=== PATIENT | male | born 2000 | race African-American/Black ===

== ENCOUNTER → 2018-03-18 | Outpatient (REF) | payer OTHER | LOC: M LAB REF 17:23 | DX: R76.11 Nonspecific reaction to tuberculin skin test without active tuberculosis (principal) | CPT/HCPCS: 87116 ==

== ENCOUNTER → 2018-03-19 | Outpatient (REF) | payer OTHER | LOC: M LAB REF 17:21 | DX: R76.11 Nonspecific reaction to tuberculin skin test without active tuberculosis (principal) | CPT/HCPCS: 87116 ==

== ENCOUNTER → 2018-03-20 | Outpatient (REF) | payer OTHER | LOC: M LAB REF 17:18 | DX: R76.11 Nonspecific reaction to tuberculin skin test without active tuberculosis (principal) | CPT/HCPCS: 87116 ==

== ENCOUNTER → 2019-11-24 | Outpatient (REF) | LOC: M LAB 13:47 | PROVIDERS: ATTEND Nurse Practitioner Adult Health | DX: Z02.89 Encounter for other administrative examinations (principal) ==

== ENCOUNTER → 2020-01-06 | Outpatient (REF) | payer OTHER, SELFPAY ==
[2020-01-06 17:14] LABS: BASO % 0.8 % (0.0-1.0); EOS % 0.5 % (0.0-3.0); LYMPH # 1.6 10^3/uL (1.5-5.0); LYMPH % 42.8 % (24.0-44.0); MEAN CORPUSCULAR HEMOGLOBIN 30.7 pg (27.0-33.0); MEAN CORPUSCULAR HGB CONC 34.1 g/dl (32.0-36.5); MEAN CORPUSCULAR VOLUME 90.2 fl (80.0-96.0); MONO # 0.4 10^3/uL (0.0-0.8); MONO % 11.3 % (0.0-5.0); NEUTROPHILS # 1.7 10^3/uL (1.5-8.5); NEUTROPHILS % 44.3 % (36.0-66.0); PLATELET COUNT, AUTOMATED 253 10^3/uL (150-450); RED BLOOD COUNT 4.88 10^6/uL (4.30-6.10); WHITE BLOOD COUNT 3.8 10^3/uL (4.0-10.0)
[2020-01-06 17:34] LABS: ALBUMIN 4.3 GM/DL (3.2-5.2); ALT/SGPT 22 U/L (12-78); BILIRUBIN,TOTAL 0.6 MG/DL (0.2-1.0); BLOOD UREA NITROGEN 12 MG/DL (7-18); CALCIUM LEVEL 9.1 MG/DL (8.5-10.1); CARBON DIOXIDE LEVEL 30 MEQ/L (21-32); CHLORIDE LEVEL 105 MEQ/L (98-107); CREATININE FOR GFR 1.04 MG/DL (0.70-1.30); GLOMERULAR FILTRATION RATE > 60.0 (>60); GLUCOSE, FASTING 83 MG/DL (70-100); POTASSIUM SERUM 3.9 MEQ/L (3.5-5.1); SODIUM LEVEL 139 MEQ/L (136-145); TOTAL PROTEIN 7.5 GM/DL (6.4-8.2)
[2020-01-07 17:42] LABS: HIV 1&2 SCREEN CENTAUR NEGATIVE (NEGATIVE)
== END ==
LOC: M SFHCPLAZ 14:10
PROVIDERS: ATTEND Internal Medicine Infectious Disease
DX: Z22.7 Latent tuberculosis (principal)

== ENCOUNTER 2021-05-26 04:30 | Emergency (ER) | payer OTHER ==
[~2021-05-26] VITALS: Ht 170.2 cm; Wt 83.6 kg
--- OUTSIDE RECORDS SUMMARY | 2021-05-26 04:37 | CCD ---
Author Author [facility] Organization [facility] Address Unknown Phone Unavailable Care Team Providers Care Employee Benefits Insurance Agent Name Role Phone PICKERAL JR, J LETI PA-C Unavailable Unavailable PICKERAL JR, J LETI PA-C Unavailable Unavailable PICKERAL JR, J LETI PA-C Unavailable Unavailable PICKERAL JR, Diamond LETI PA-C Unavailable Unavailable PICKERAL JR, Diamond LETI PA-C Unavailable Unavailable PICKERAL JR, Diamond LETI PA-C Unavailable Unavailable PICKERAL JR, Diamond LETI PA-C Unavailable Unavailable PICKERAL JR, Diamond LETI PA-C Unavailable Unavailable PICKERAL JR, Diamond LETI PA-C Unavailable Unavailable PICKERAL JR, Diamond LETI PA-C Unavailable Unavailable PICKERAL JR, Diamond LETI PA-C Unavailable Unavailable PICKERAL JR, J LETI PA-C Unavailable Unavailable PICKERAL JR, Diamond LETI PA-C Unavailable Unavailable PICKERAL JR, J LETI PA-C Unavailable Unavailable PICKERAL JR, J LETI PA-C Unavailable Unavailable PICKERAL JR, J LETI PA-C Unavailable Unavailable PICKERAL JR, J LETI PA-C Unavailable Unavailable PICKERAL JR, J LETI PA-C Unavailable Unavailable PICKERAL JR, J LETI PA-C Unavailable Unavailable PICKERAL JR, J LETI PA-C Unavailable Unavailable PICKERAL JR, J LETI PA-C Unavailable Unavailable PICKERAL JR, J LETI PA-C Unavailable Unavailable PICKERAL JR, J LETI PA-C Unavailable Unavailable PICKERAL JR, J LETI PA-C Unavailable Unavailable PICKERAL JR, J LETI PA-C Unavailable Unavailable PICKERAL JR, J LETI PA-C Unavailable Unavailable PICKERAL JR, J LETI PA-C Unavailable Unavailable Re-disclosure Warning The records that you are about to access may contain information from federally-assisted alcohol or drug abuse programs. If such information is present, then the following federally mandated warning applies: This information has been disclosed to you from records protected by federal confidentiality rules (42 CFR part 2). The federal rules prohibit you from making any further disclosure of this information unless further disclosure is expressly permitted by the written consent of the person to whom it pertains or as otherwise permitted by 42 CFR part 2. A general authorization for the release of medical or other information is NOT sufficient for this purpose. The Federal rules restrict any use of the information to criminally investigate or prosecute any alcohol or drug abuse patient.The records that you are about to access may contain highly sensitive health information, the redisclosure of which is protected by Article 27-F of the [facility] Public Health law. If you continue you may have access to information: Regarding HIV / AIDS; Provided by facilities licensed or operated by the [facility] Office of Mental Health; or Provided by the [facility] Office for People With Developmental Disabilities. If such information is present, then the following [facility] mandated warning applies: This information has been disclosed to you from confidential records which are protected by state law. State law prohibits you from making any further disclosure of this information without the specific written consent of the person to whom it pertains, or as otherwise permitted by law. Any unauthorized further disclosure in violation of state law may result in a fine or penitentiary sentence or both. A general authorization for the release of medical or other information is NOT sufficient authorization for further disc losure. Encounters Encounter Providers Location Date Indications Data Source(s ) Outpatient Attender: LETI fuchs 02/11/2021 08:45:[address] [facility] ([facility], [facility]) Immunizations Vaccine Date Status Description Data Source(s) COVID-19 VACCINE Moderna 12/02/2020 12:00:00 AM EDT completed IDSIIS Vaccine Series Complete: NOThis Data was Submitted to [facility] Via [employer]. Medications No Information Insurance Providers Payer name Policy type / Coverage type Policy ID Covered republican ID Covered republican's relationship to hanson Policy Hanson Plan Information UMR [facility] [id number] SP [id number] SELF PAY ONLY SP OTHER1 MEDICAID M [id number] S [id number] [facility] PUB TH O [id number] S [id number] [facility] [id number] SP [id number] [facility] [id number] SP [id number] EMPLOYEE BENEFIT CLAIMS [id number] SP [id number] SELF PAY [facility] PUB [facility] O UNAVAILABLE [id number] S UNAVAILABLE O UNAVAILABLE UNAVAILA BLE Problems, Conditions, and Diagnoses No Information Surgeries/Procedures Procedure Description Date Indications Data Source(s) Remove Impact Cerumen Irrigati 02/11/20[facility] 12:00:[facility] OFFICE OUTPATIENT NEW 30 MINUTES 02/11/2021 12:00:[address] [facility] ([facility], [facility]) Results No Information Social History No Information Vital Signs ID Date Data Source UNK Name Value Range Interpretation Code Description Data Source(s) Systolic blood pressure 141 mm[Hg] 141 mm[Hg] [facility] Heart rate 65 /min 65 /min [facility] ([facility], [facility]) Diastolic blood pressure 80 mm[Hg] 80 mm[Hg] [facility] ([facility]) Respiratory rate 12 /min 12 /min [facility] ( [facility]) Oxygen saturation in Arterial blood by Pulse oximetry 98 % 98 % [facility] ([facility], [facility]) Body temperature 97.8 [degF] 97.8 [degF] [facility] ([facility]) Body weight 178.00 [lb_av] 178.00 [facility]_av] [facility] Body height 67 [in_i] 67 [in_i] [facility] ([facility]) 5'7" Body mass index (BMI) [Ratio] 27.9 kg/m2 27.9 k g/m2 [facility] ([facility])
--- OUTSIDE RECORDS SUMMARY | 2021-05-26 08:11 | CCD ---
Author Author [facility] Organization [facility] Address Unknown Phone Unavailable Care Team Providers Care Transfer Table Operator Name Role Phone PICKERAL JR, J LETI [...] is protected by Article 27-F of the [facility] Public Health law. If you continue you may have access to information: Regarding HIV / AIDS; Provided by facilities licensed or operated by the [facility] Office of Mental Health; or Provided by the [facility] Office for People With Developmental Disabilities. If such information is present, then the following [facility] mandated warning applies: This information has been [...] law may result in a fine or group home sentence or both. A general authorization for the release of medical or other information is NOT sufficient authorization for further disc losure. Encounters Encounter Providers Location Date Indications Data Source(s ) Outpatient Attender: LETI fuchs 02/11/2021 08:45:00 AM EDT [facility] ([facility], [facility]) Immunizations Vaccine Date Status Description Data Source(s) COVID-19 VACCINE Moderna 12/02/2020 12:00:00 AM EDT completed KYSIIS Vaccine Series Complete: NOThis Data was Submitted to [facility] Via [employer]. Medications No Information Insurance Providers Payer name Policy type / Coverage type Policy ID Covered green party ID Covered green party's relationship to ahnson Policy Hanson Plan Information UMR [facility] [id number] SP [id number] SELF PAY ONLY SP OTHER1 MEDICAID M [id number] S [id number] [facility] PUB TH O [id number] S [id number] [facility] [id number] SP [id number] [facility] [id number] SP [id number] EMPLOYEE BENEFIT CLAIMS [id number] SP [id number] SELF PAY [facility] PUB [facility] O UNAVAILABLE [id number] S UNAVAILABLE O UNAVAILABLE UNAVAILA BLE Problems, Conditions, and Diagnoses No Information Surgeries/Procedures Procedure Description Date Indications Data Source(s) Remove Impact Cerumen Irrigati 02/11/2021 12:00:00 AM [facility]) OFFICE OUTPATIENT NEW 30 MINUTES 02/11/2021 12:00:00 A M EDT [facility], [facility]) Results No Information Social History No Information Vital Signs ID Date Data Source UNK Name Value Range Interpretation Code Description Data Source(s) Systolic blood pressure 141 mm[Hg] 141 mm[Hg] [facility]) Diastolic blood pressure 80 mm[Hg] 80 mm[Hg] [facility] ([facility]) Heart rate 65 /min 65 /min [facility] ([facility], [facility]) Respiratory rate 12 /min 12 /min [facility] ( [facility]) Oxygen saturation in Arterial blood by Pulse oximetry 98 % 98 % [facility] ([facility], [facility]) Body temperature 97.8 [degF] 97.8 [degF] [facility] ([facility], [facility]) Body weight 178.00 [lb_av] 178.00 [lb_av] [facility] Body height 67 [in_i] 67 [in_i] [facility] ([facility] 5'7" Body mass index (BMI) [Ratio] 27.9 kg/m2 27.9 k g/m2 [facility] ([facility])
--- NOTE | 2021-05-26 09:12 | REP ---
INDICATION: trauma to throat. COMPARISON: None. TECHNIQUE: Axial soft tissue images with coronal and sagittal reconstructions provided. FINDINGS: The parotid and submandibular glands were unremarkable. Anterior and posterior chain cervical nodes were symmetric no abnormal thickening of the adenoid pad. The nasopharyngeal, mo pharyngeal and hypopharyngeal airway is were intact. Larynx and subglottic trachea unremarkable. No significant asymmetry of the tonsillar fossa or mass. Tongue base grossly intact. Strap muscles in the neck were unremarkable. No prevertebral swelling. The bone windows show the cervical spine with normal lordosis and no focal lesion craniocervical junction intact. Mandible, maxilla skull base bone windows are unremarkable mastoid symmetric and normal visualized sinuses clear. No supraclavicular mass or adenopathy. Thyroid lobes symmetric. The lung apices are clear. IMPRESSION: No CT evidence for significant pathology in the throat or neck soft tissues. The underlying skull base, facial and cervical spine bony structures grossly intact. Airway patent. Nothing acute by CT. <Electronically signed by Eb Barillas > 05/26/21 [id number]
[2021-05-26 09:40] VITALS: BP 132/82
== END 2021-05-26 09:41 | disposition home or self-care (01) ==
LOC: M ED 04:30
DX: R13.10 Dysphagia, unspecified (principal); M54.2 Cervicalgia; J02.9 Acute pharyngitis, unspecified; R22.1 Localized swelling, mass and lump, neck

== ENCOUNTER 2024-01-09 08:22 | Emergency (ER) | payer OTHER, SELFPAY ==
[~2024-01-09] VITALS: Ht 170.2 cm; Wt 69.4 kg
[2024-01-09] MEDS: FLUORESCEIN OPHTH 1MG STRIP OD ONE (08:48)
[2024-01-09] MEDS: PROPARACAINE 0.5% OPHTH SOL 15ML OD ONE (08:48)
[2024-01-09] MEDS ORDERED: OFLO5DRO OD (09:23)
[2024-01-09] MEDS: cefTRIAXone SOD 1GM VIAL IM ONE (09:32)
[2024-01-09] MEDS: LIDOCAINE 1% SDV 5ML VIAL DILUENT ONE (09:32)
[2024-01-09] MEDS: OFLOXACIN 0.3 % (OCUFLOX) OPTH SOL 5ML OD ONE (09:37)
[2024-01-09 09:52] VITALS: BP 122/77; TEMP 98.3; O2SAT 98
== END 2024-01-09 10:12 | disposition home or self-care (01) ==
LOC: M ED 08:22
DX: H10.31 Unspecified acute conjunctivitis, right eye (principal); F17.200 Nicotine dependence, unspecified, uncomplicated; Z79.2 Long term (current) use of antibiotics
CPT/HCPCS: 87070; 96372; 99283; J0696

== ENCOUNTER 2025-05-17 14:10 | Emergency (ER) | payer OTHER ==
[~2025-05-17 14:10] MED LIST: OFLO5DRO OD
[2025-05-17 14:12] VITALS: BP 143/83; TEMP 96.9; O2SAT 98
[2025-05-17 14:38] LABS: BASO # 0.0 10^3/uL (0.0-0.2); BASO % 0.7 % (0.0-1.0); EOS # 0.0 10^3/uL (0.0-0.5); EOS % 0.7 % (0.0-3.0); LYMPH # 1.9 10^3/uL (1.5-5.0); LYMPH % 42.6 % (24.0-44.0); MONO # 0.4 10^3/uL (0.0-0.8); MONO % 8.9 % (2.0-8.0); NEUTROPHILS # 2.1 10^3/uL (1.5-8.5); NEUTROPHILS % 47.1 % (36.0-66.0); PLATELET COUNT, AUTOMATED 251 10^3/uL (150-450)
[2025-05-17 15:04] LABS: INR 1.02
[2025-05-17 15:06] LABS: CK-MB VALUE MASS < 1.0 NG/ML (<3.6)
[2025-05-17 15:09] LABS: ALT/SGPT 16 U/L (7.0-40); AST/SGOT 14 U/L (<34); CALCIUM LEVEL 9.9 MG/DL (8.5-10.1); CARBON DIOXIDE LEVEL 30 MMOL/L (20-31); CHLORIDE LEVEL 105 MMOL/L (98-107); CPK CREATINE PHOSPHOKINASE 117 U/L (46-171); CREATININE FOR GFR 1.03 MG/DL (0.70-1.30); GLOMERULAR FILTRATION RATE > 90.0 (>60); POTASSIUM SERUM 3.7 MMOL/L (3.5-5.1); SODIUM LEVEL 143 MMOL/L (136-145)
== END 2025-05-17 17:46 | disposition left against medical advice (07) ==
LOC: M ED 14:10
DX: Z53.21 Procedure and treatment not carried out due to patient leaving prior to being seen by health care provider (principal)

== ENCOUNTER → 2025-05-27 | Outpatient (REF) | LOC: M RAD 12:02 | PROVIDERS: ATTEND Family Medicine | DX: Z01.89 Encounter for other specified special examinations (principal) ==